=== PATIENT | female | born 1965 | race Caucasian/White ===

== ENCOUNTER 2017-02-21 05:46 | Day surgery (SDC) | payer OTHER ==
[2017-02-21] MEDS ORDERED: LIDOCAINE 1% 2 ML INJ ONE (06:24)
[2017-02-21] MEDS ORDERED: LR 1,000 ML IV ONE (06:37)
[2017-02-21] MEDS ORDERED: LIDOCAINE 1% 5 ML SDV ID PRN (06:37)
[2017-02-21] MEDS ORDERED: LIDO/EPI 1% **Not for Epidural 20 ML MDV ONE (06:53)
[2017-02-21] MEDS ORDERED: fentaNYL 100 MCG/2 ML INJ ONE (07:33)
[2017-02-21] MEDS ORDERED: PROPOFOL/EMULSION 500 MG/50 ML BOTTLE IV ONE (07:33)
[2017-02-21] MEDS ORDERED: KETOROLAC 30 MG/1 ML SDV ONE (08:07)
--- NOTE | 2017-02-21 09:37 | GOP ---
[f rep st] OPERATIVE REPORT DATE OF OPERATION: 02/21/2017 SURGEON: Shweta Owens MD ANESTHESIA: General with MAC. ANESTHESIOLOGIST: Dr. Juan Cardona, PREOPERATIVE DIAGNOSIS: 1. Dysfunctional uterine bleeding. 2. Endometrial polyps. 3. Anemia. POSTOPERATIVE DIAGNOSIS: 1. Dysfunctional uterine bleeding. 2. Endometrial polyps. 3. Anemia. PROCEDURE PERFORMED: Hysteroscopic polypectomy with dilatation and curettage. FINDINGS: A posterior wall endometrial polyp, and thick endometrial tissue throughout. INDICATIONS: Patient is a 51-year-old, who has had very heavy menstrual cycles for the past couple of years. Ultrasound and sonohysterogram show submucosal polyps, and the patient desires definitive therapy. She has been offered a NovaSure and declines, and just wishes to proceed with removal of endometrial tissue. DESCRIPTION OF PROCEDURE: With informed consent signed, patient taken to the operating room and galileo cr under general anesthesia, and placed in a low dorsal lithotomy position, and prepped and draped in the usual fashion. Bladder previously emptied. A tenaculum placed on the anterior lip of the ce rvix. Cervix dilated to 9.5 mm. Hysteroscope placed using normal saline as a filling medium. A [facility] TruClear rotary blade was placed into the uterine cavity, and removal of the endometr ial tissue done without complication. Once it was felt that the significant polyps were removed, th e blade was used to resect all of the endometrial tissue, so a curette was done of the entire endome trium. Once this was completed, the hysteroscope was removed, and net fluid deficit was 50 cc. Hem ostasis was noted. The patient placed in a supine position, awakened in the operating room, and flower en to recovery room in stable condition, tolerating the procedure well. COMPLICATIONS: None. /[id number]/MODL
== END 2017-02-21 09:45 | disposition home or self-care (01) ==
LOC: FSGY 05:46
PROVIDERS: ATTEND Obstetrics & Gynecology Gynecology
PROC: 0UB98ZZ Excision of Uterus, Via Natural or Artificial Opening Endoscopic (ICD-10-PCS; principal; 2017-02-21 07:15)
DX: N93.8 Other specified abnormal uterine and vaginal bleeding (principal); N84.0 Polyp of corpus uteri; D64.9 Anemia, unspecified
CPT/HCPCS: 58558; C1782; J1885; J2704; J3010

== ENCOUNTER 2017-05-16 08:52 | Day surgery (SDC) | payer OTHER ==
[2017-05-16] MEDS ORDERED: LR 1,000 ML IV ONE (10:05)
--- NOTE | 2017-05-16 10:32 | PDGENHP ---
History & Physical Chief Complaint: iron def anemia History of Present Illness: iron def anemia Pertinent Past, Social, Family History: hx breast cancer, no tobacco, alcohol, fhx breast, thyroid, bladder, ovarian cancer Relevant Physical Exam: A+Ox3. CTA. S1S2, RRR. +Bs, soft NT Cardiorespiratory Assessment: class 2 pt
--- NOTE | 2017-05-16 10:38 | PDANEPAE ---
ANE History of Present Illness diagnostic anemia ANE Past Medical History - Cardiovascular History Hx Hypertension: No Hx Arrhythmias: No Hx Chest Pain: No Hx Coronary Artery / Peripheral Vascular Disease: No Hx CHF / Valvular Disease: No Hx Palpitations: No - Pulmonary History Hx COPD: No Hx Asthma/Reactive Airway Disease: No Hx Recent Upper Respiratory Infection: No Hx Oxygen in Use at Home: No Hx Sleep Apnea: No - Neurologic History Hx Cerebrovascular Accident: No Hx Seizures: No Hx Dementia: No - Endocrine History Hx Diabetes: No - Renal History Hx Renal Disorders: No - Liver History Hx Hepatic Disorders: No - Neurological & Psychiatric Hx Hx Neurological and Psychiatric Disorders: Yes Neurological / Psychiatric History Comment: ANXIETY - Cancer History Hx Cancer: Yes Cancer History Comment: BREAST - Congenital Disorder History Hx Congenital Disorders: No - GI History Hx Gastrointestinal Disorders: No - Other Health History Other Health History: UTERINE POLYP. MENORRHAGIA - Chronic Pain History Chronic Pain: No - Surgical History Prior Surgeries: ISELA MASTECTOMY WITH RECONSTRUCTION 10/2011. RT BREAST BX. RT ING HERNIA ANE Patient History - Allergies Allergies/Adverse Reactions: No Known Allergies Allergy (Unverified 01/25/11 14:46) - Home Medications Home Medications: Herbal Drugs 01/24/17 [Last Taken 1 Week Ago] IRON DAILY 01/24/17 [Last Taken 1 Week Ago] Zoloft 100mg (*) DAILY AT 6PM 01/24/17 [Last Taken 1 Day Ago] - NPO status NPO Since - Liquids (Date): 05/16/17 NPO Since - Liquids (Time): 00:00 NPO Since - Solids (Date): 05/15/17 NPO Since - Solids (Time): 09:00 - Smoking Hx Smoking Status: Former smoker ANE Labs/Vital Signs - Vital Signs Blood Pressure: 106/68 Heart Rate: 55 Respiratory Rate: 18 O2 Sat (%): 99 Height: 154.94 cm Weight: 44.906 kg ANE Physical Exam - Airway Neck exam: FROM Mallampati Score: Class 1 Mouth exam: normal dental/mouth exam - Pulmonary Pulmonary: no respiratory distress - Cardiovascular Cardiovascular: regular rate and rhythym - ASA Status ASA Status: I ANE Anesthesia Plan Anesthesia Plan: MAC (with IV GA)
[2017-05-16] MEDS ORDERED: LIDOCAINE 2% 5 ML SDV ONE (10:41)
[2017-05-16] MEDS ORDERED: PROPOFOL 200 MG/20 ML VIAL ONE ×2 (10:41)
--- NOTE | 2017-05-16 11:15 | POSTOPPROG ---
Post Op Note Date of Operation: 05/16/17 Surgeon: Avila Barrios Anesthesiologist: Oscar Anesthesia: Other (Specify) (Iv general) Pre-op Diagnosis: iron def anemia Post-op Diagnosis: gastritis, nml esoph, nml duodenum, nml colon and TI Indication: iron def Procedure: EGD and BX, colonoscopy Findings: gastritis, nml colon Inf/Abcess present in the surg proc area at time of surgery?: No EBL: Minimal (few ml from bx) Total fluids administered: 350 ml LR Complications: none immediate
[2017-05-16] MEDS ORDERED: NALOXONE HCL 0.4 MG/ML INJ IVP PRN (11:21)
--- NOTE | 2017-05-16 11:22 | POSTANESTH ---
Post Anesthetic Evaluation Cardiovascular Status: Normal, Stable Respiratory Status: Normal, Stable Level of Consciousness/Mental Status: Can Participate in Eval Pain Control: Adequate, Prn Tx Ordered Nausea/Vomiting Control: Adequate, Prn Tx Ordered Complications Possibly Related to Anesthesia: None Noted
[2017-05-16 11:45] VITALS: TEMP 98.2
--- NOTE | 2017-05-16 12:33 | GPN ---
[f rep st] PROCEDURE NOTE DATE OF PROCEDURE: 05/16/2017 PROCEDURE PERFORMED: Esophagogastroduodenoscopy, biopsy, and colonoscopy. INDICATION: Iron deficiency anemia. INFORMED CONSENT: I discussed with the patient regarding the procedure, alternatives, benefits, and risks including bleeding, perforation, infection, risk of medication. Informed consent was signed and witnessed. COMPLICATIONS: None immediate. MEDICATIONS USED: IV general, per Dr. Webb. DESCRIPTION OF EGD: After adequate sedation, patient remained in left lateral decubitus position an d a forward-viewing upper endoscope was then inserted via the oropharynx and advanced under direct v isualization down the esophagus. The esophageal mucosa was normal. The endoscope was advanced in t he stomach. There was some obvious gastritis in the proximal antrum with an area of erosion and inf lammation. The endoscope was advanced through a normal-looking pylorus into a normal duodenal. I v iewed the duodenal bulb and sweep. Biopsies were obtained from the duodenal sweep and the bulb. The endoscope withdrawn back into the stomach and biopsies taken from the area of gastritis as well as the prepyloric antrum. Retroflexed examination was performed. The endoscope was unretroflexed a nd withdrawn, confirming the above findings. The patient tolerated the procedure well and was repositioned for colonoscopy. DESCRIPTION OF COLONOSCOPY: Patient remained in left lateral decubitus position. A visual and digi adarsh anorectal examination was performed. The videocolonoscope was inserted into the rectum and adva nced under visualization to the terminal ilium. The prep was excellent. Upon slow withdrawal of th e instrument, careful attention was paid to mucosal detail. The prep was excellent. There was no e vidence of polyps, colitis, diverticulosis or other abnormality. Retroflex examination was performe d in the rectum. The endoscope was advanced back to the proximal transverse colon and air was remov ed. The endoscope was then removed completely. The patient tolerated the procedure well and was transferred to the recovery room in stable conditio n. IMPRESSION: 1. Normal esophagus. 2. Gastritis status post biopsy. 3. Normal duodenum status post biopsy. 4. Normal colonoscopy. 5. Normal terminal ilium. RECOMMENDATIONS: 1. Follow up pathology. 2. Recommend PPI therapy for approximately 8 weeks to heal this gastritis. 3. If there is no evidence of celiac sprue on pathology, would recommend small bowel capsule endosc opy. This area of gastritis could be a source of anemia but it certainly is not "a smoking gun" ana t I would have expected to have seen. 4. Iron replacement per PCP. 5. Further recommendations will follow in clinical course. Thank you for allowing me to participate in this patient's health care. Do not hesitate to call me with any questions. /[id number]/MODL
[2017-05-17 08:37] VITALS: BP 117/60; PULSE 66; RESP 16; O2SAT 98
== END 2017-05-16 12:25 | disposition home or self-care (01) ==
LOC: FSGY 08:52
PROVIDERS: ATTEND Internal Medicine Gastroenterology
PROC: 0DJD8ZZ Inspection of Lower Intestinal Tract, Via Natural or Artificial Opening Endoscopic (ICD-10-PCS; principal; 2017-05-16 10:30)
PROC: 0DB68ZZ Excision of Stomach, Via Natural or Artificial Opening Endoscopic (ICD-10-PCS; principal; 2017-05-16 10:30)
PROC: 0DJ08ZZ Inspection of Upper Intestinal Tract, Via Natural or Artificial Opening Endoscopic (ICD-10-PCS; principal; 2017-05-16 10:30)
DX: D50.9 Iron deficiency anemia, unspecified (principal); K29.70 Gastritis, unspecified, without bleeding; F41.9 Anxiety disorder, unspecified; Z85.3 Personal history of malignant neoplasm of breast
CPT/HCPCS: J2704